=== PATIENT | female | born 1985 | race Caucasian/White ===

== ENCOUNTER → 2016-08-26 | Outpatient (CLI) | payer BC ==
[~2016-08-26] MED LIST: FERR325T51 PO; PRENTAB26 PO
== END | disposition home or self-care (01) ==
LOC: C.PATHSPEC 14:17
PROVIDERS: ATTEND Obstetrics & Gynecology
DX: N87.1 Moderate cervical dysplasia (principal); N93.0 Postcoital and contact bleeding

== ENCOUNTER → 2016-08-26 | Outpatient (CLI) | payer BC | END | disposition home or self-care (01) | LOC: C.PAPS 14:42 | PROVIDERS: ATTEND Obstetrics & Gynecology | DX: Z01.419 Encounter for gynecological examination (general) (routine) without abnormal findings (principal); N87.1 Moderate cervical dysplasia; N93.0 Postcoital and contact bleeding ==

== ENCOUNTER → 2017-01-28 | Outpatient (CLI) | payer BC ==
[2017-01-31 02:24] LABS: CHLAMYDIA TRACH RNA*** NOT DETECTED (NOT DETECTED); GC (NEIS GONORRHOEAE)RNA** NOT DETECTED (NOT DETECTED)
== END | disposition home or self-care (01) ==
LOC: C.LABSPEC 17:39
PROVIDERS: ATTEND Obstetrics & Gynecology
DX: N89.8 Other specified noninflammatory disorders of vagina (principal)

== ENCOUNTER → 2017-12-15 | Outpatient (CLI) | payer BC | END | disposition home or self-care (01) | LOC: C.PAPS 18:10 | PROVIDERS: ATTEND Obstetrics & Gynecology | DX: Z01.419 Encounter for gynecological examination (general) (routine) without abnormal findings (principal); Z87.410 Personal history of cervical dysplasia ==

== ENCOUNTER 2018-08-04 19:56 | Inpatient (IN) ==
[2018-08-04] MEDS ORDERED: ONDANSETRON INJ 2 MG/ML 2 ML VIAL IV STA (20:25)
[2018-08-04] MEDS ORDERED: ACETAMINOPHEN 1,000 MG/100 ML VIAL IV STA (20:25)
[2018-08-04] MEDS ORDERED: KETOROLAC TROMETHAMINE 15 MG/ML VIAL IV STA (20:25)
[2018-08-04] MEDS ORDERED: SODIUM CHLORIDE 0.9% 500 ML IV SCH (20:30)
[2018-08-04 20:34] LABS: Basophils # (auto) 0.05 K/uL (0-0.2); Basophils % (auto) 0.3 %; Eosinophils # (auto) 0.11 K/uL (0-0.5); Eosinophils % (auto) 0.7 %; Hematocrit (blood only) 38.3 % (37-47); Hemoglobin 13.2 g/dL (12.0-16.0); Immature Granulocytes # (auto) 0.04 K/uL (0.00-0.02); Immature Granulocytes % (auto) 0.2 %; Lymphocytes % (auto) 27.2 %; Mean Corpuscular Hgb Conc 34.5 g/dL (32-36); Mean Corpuscular Volume 90.1 fL (80-100); Mean Platelet Volume 10.4 fL (7.4-10.4); Monocytes # (auto) 0.74 K/uL (0.11-0.59); Monocytes % (auto) 4.4 %; Neutrophils # (auto) 11.35 K/uL (1.4-6.5); Neutrophils % (auto) 67.2 %; Platelet Count 312 K/uL (130-400); RDW Coefficient of Variation 12.8 % (11.5-14.5); RDW Standard Deviation 42.1 fL (36.4-46.3); Red Blood Count 4.25 M/uL (4.2-5.4); White Blood Count 16.89 K/uL (4.8-10.8)
[2018-08-04 20:50] LABS: Albumin Level 4.3 gm/dl (3.4-5.0); BUN Creatinine Ratio 15.5 (10-20); Calcium 8.9 mg/dl (8.5-10.1); Est GFR (African American) 92.5; Est GFR (Non-African American) 79.8; Potassium 3.4 mmol/L (3.5-5.1)
[2018-08-04 20:53] LABS: Albumin Globulin Ratio 1.3 (0.9-2); Bilirubin,Total 0.4 mg/dl (0.2-1); Globulin 3.4 gm/dl (2.5-4.0); Total Protein 7.7 gm/dl (6.4-8.2)
[2018-08-04 21:00] LABS: Pregnancy Test, Serum Negative (Negative)
[2018-08-04] MEDS ORDERED: IOVERSOL 100ml IV PRN (21:08)
[2018-08-04 21:09] LABS: Appearance Urine Clear (Clear); Bilirubin Urine Negative (Negative); Blood Urine Negative (Negative); Color Urine Yellow; Glucose Urine UA Negative (Negative); Ketones Urine Trace (Negative); Leukocyte Esterase Urine Negative (Negative); Nitrite Urine Negative (Negative); Protein Urine Negative (Negative); Specific Gravity Urine 1.039 (1.000-1.030); Urobilinogen Urine Negative (Negative)
[2018-08-04] MEDS ORDERED: HYDROmorphone INJ 0.5 MG/0.5 ML SYR IV STA (21:21)
[2018-08-04] MEDS ORDERED: SODIUM CHLORIDE 0.9% 1000ML 500 ML IV ONE (21:21)
--- NOTE | 2018-08-04 21:30 | CT Scan Report ---
ABDOMEN AND PELVIS CT WITH IV CONTRAST CT DOSE: 267.00 mGy.cm HISTORY: Lower abdominal pain. TECHNIQUE: Multiaxial CT images of the abdomen and pelvis were performed following the use of intrave nous contrast. A dose lowering technique was utilized adhering to the principles of ALARA. COMPARISON STUDY: None. FINDINGS: The lung bases are clear. No fractures within the visualized osseous structures. There are 2 subcentimeter hypodense lesions within the liver measuring 5 mm. There is also a 5 mm hypodense les ion within the left kidney. These are technically too small to characterize but statistically represe nt cysts. The spleen, right kidney, gallbladder, pancreas, and adrenal glands are unremarkable. No re troperitoneal lymphadenopathy. Normal bladder. The uterus is within normal limits. Moderate amount of hemoperitoneum with a sentinel clot at the pelvic cul-de-sac. There is a 2.7 cm cystic lesion within the right adnexa. No bowel wall thickening or obstruction. The appendix not well visualized due to t he hemoperitoneum. A short segment of the appendix is likely identified on image 253 and appears with in normal limits. IMPRESSION: 1. Moderate hemoperitoneum. The etiology is not identified with certainty. However, there is a sentin el clot at the pelvic cul-de-sac and a 2.7 cm cystic lesion within the right adnexa. Therefore, this may represent a ruptured hemorrhagic ovarian cyst or ruptured ectopic as the primary reason . Correlation with beta-hCG is recommended. In addition, surgical consultation also recommended for f urther evaluation. 2. These findings were discussed with Dr. Shaw at 9:20 PM on 08/04/2018. Electronically signed by: Reed Tao M.D. 08/04/2018 9:28 PM
--- NOTE | 2018-08-04 21:46 | Emergency Department Note ---
Entered by Gabino Colmenares acting as a scribe for Dequan Shaw MD History of Present Illness General Chief complaint: Abdominal Pain Stated complaint: ABDONINAL PAIN Time Seen by Provider: 08/04/18 20:19 Source: patient History of Present Illness Onset (ago): hour(s) 8 Location: abdomen (lower) Radiation: back (lower) Pain Consistency: + constant Maximum Pain Intensity: 10 Quality: + other (cramping) Relieved By: not by medication ([facility]) Exacerbated By: + other (sitting down) Associated symptoms: + other (nausea, denies vaginal bleeding); no fever/chills The patient is a 33 year old female who presents to the Emergency Room with complaints of constant lower abdominal cramping beginning about 8 hours ago. She states that her pain radiates to her lower back. The patient reports that the pain intermittently worsens to 10/10 and is exacerbated with sitting down. She notes that her pain seems less severe when bending over while walking as opposed to standing straight. She states that she had watery diarrhea prior to the onset of her pain. She also reports nausea without vomiting. She states that she is due for her period but denies any vaginal bleeding. She reports some burning wi th urination today, but not prior to the onset of her pain. She notes that there was no improvement of her pain with [facility]. She states that she has had menstrual cramps in the past, but not to this extent. She notes a history of ovarian cyst. She denies fevers, trauma, falls, history of abdominal surgery, or other medical problems. Home Medications Home Medications Medication Instructions Recorded Confirmed Type Multivit/Min/Iron/Fol Ac/Pren 1 tab PO DAILY #0 tab 02/15/15 History ( Vitamin) FERROUS SULFATE (IRON SUPPLEMENT) 1 tab PO DAILY 30 Days #30 tab 06/04/15 History Allergies Allergy/AdvReac Type Severity Reaction Status Date / Time cefaclor Allergy Unknown rash/hives Verified 06/04/15 17:49 morphine AdvReac Hypotension Verified 08/04/18 20:05 Past Med/Surg History Medical History Ovarian cyst Family History Other Ovarian cyst Social History Preferred Language: Japanese current occupation: officer Feels Safe at Home: Yes Review of Systems See HPI for pertinent positives & negatives. and A total of 10 systems reviewed and were otherwise negative Physical Exam Vital Signs Vital Signs - 24 hr 08/04/18 20:01 08/04/18 20:37 08/04/18 21:57 Temperature 36.8 C Temperature Source Oral Sepsis Recent Fever Within 48 Hours No Sepsis New/Unexplained Change in Mental Status No Sepsis Action Taken by Nursing No Action Required Pulse Rate 105 H 100 H Pulse Rate [Apical] 108 H Pulse Rhythm Regular Pulse Strength Normal Respiratory Rate 18 20 Respiratory Effort / Characteristics Non-Labored Spontaneous Respiratory Depth Normal Respiratory Pattern Regular Blood Pressure 115/82 Blood Pressure [Right Arm] 128/63 Blood Pressure Mean 93 Blood Pressure Mean [Right Arm] 84 Blood Pressure Position Sitting Pulse Oximetry 99 99 100 Oxygen Delivery Method Room Air Room Air Room Air GENERAL: Patient is in no acute distress. HEENT: No acute trauma, normocephalic atraumatic, mucous membranes moist, no nasal congestion, no scleral icterus. NECK: No stridor, no adenopathy, no meningismus, trachea is midline. LUNGS: Clear to auscultation bilaterally, no wheeze, no rhonchi, breath sounds equal. HEART: Without murmurs gallops or rubs, regular rate and rhythm. ABDOMEN: Soft, moderately tender in the lower abdomen/pelvis bilaterally, bowel sounds positive, no hernias, no peritonitis. EXTREMITIES: No cyanosis or edema, full range of motion of all the joints without pain or difficulty, no signs for acute trauma. NEUROLOGIC: Oriented x 3, no acute motor or sensory deficits, no focal weakness. SKIN: No rash, no jaundice, no diaphoresis. Course 2020: The patient was evaluated in room C4, and a complete history and physical examination were performed. 2121: I updated the patient and the at bedside on results. She states that she is still in pain. 2128: I consulted Dr. Kirit Rojas OB-SURVEILLANCE MONITOR. He recommends an ultrasound and states that he will evaluate the patient. 2131: I updated the patient on the current plan. Consultations Consultation #1: I consulted Dr. Kirit Rojas OB-SURVEILLANCE MONITOR. He recommends an ultrasound and states that he will evaluate the patient. Time: 21:29 Administered Medications Ioversol (Optiray 320 100ml) 94 ml IV ONCE PRN PRN Reason: Interaction Checking Stop: 08/08/18 21:07 Last Admin: 08/04/18 21:10 Dose: 94 ml Documented by: [id number] Discontinued Medications Hydromorphone HCl (Dilaudid) 0.5 mg IV NOW STA Stop: 08/04/18 21:22 Last Admin: 08/04/18 22:09 Dose: 0.5 mg Documented by: [id number] Acetaminophen (Ofirmev) 1,000 mg in 100 mls @ 400 mls/hr IV NOW STA Stop: 08/04/18 20:39 Last Infusion: 08/04/18 20:54 Dose: 0 mls/hr Documented by: [id number] Admin: 08/04/18 20:36 Dose: 400 mls/hr Documented by: [id number] Sodium Chloride (Nss) 500 mls @ 999 mls/hr IV .Q31M BRIGID Stop: 08/04/18 21:00 Last Infusion: 08/04/18 21:00 Dose: 0 mls/hr Documented by: [id number] Admin: 08/04/18 20:36 Dose: 999 mls/hr Documented by: [id number] Sodium Chloride (Nss 1000ml) 500 mls @ 999 mls/hr IV .Q31M ONE Stop: 08/04/18 21:51 Last Infusion: 08/04/18 21:55 Dose: 0 mls/hr Documented by: [id number] Admin: 08/04/18 21:24 Dose: 999 mls/hr Documented by: [id number] Ketorolac Tromethamine (Toradol) 15 mg IV NOW STA Stop: 08/04/18 20:26 Last Admin: 08/04/18 20:36 Dose: 15 mg Documented by: [id number] Ondansetron HCl (Zofran) 4 mg IV NOW STA Stop: 08/04/18 20:26 Last Admin: 08/04/18 20:36 Dose: 4 mg Documented by: [id number] Medical Decision Making Differential Diagnosis Differential diagnosis: ovarian cyst or ovarian cyst rupture, UTI, appendicitis, diverticulitis, menstrual cramping, colitis, bowel rupture, hernia, musculoskeletal pain Medical Records Attestation: I reviewed the patient's medical records. Home Medications Current Medication List: was personally reviewed by me Laboratory Data Attestation: I reviewed the patient's lab results. Result diagrams: 08/04/18 20:15 08/04/18 20:15 Lab Results 08/04/18 08/04/18 08/04/18 Range/Units 20:15 20:15 20:15 WBC 16.89 H (4.8-10.8) K/uL RBC 4.25 (4.2-5.4) M/uL Hgb 13.2 (12.0-16.0) g/dL Hct 38.3 (37-47) % MCV 90.1 (80-100) fL MCH 31.1 (25-34) pg MCHC 34.5 (32-36) g/dL RDW Std Deviation 42.1 (36.4-46.3) fL RDW Coeff of Marcus 12.8 (11.5-14.5) % Plt Count 312 (130-400) K/uL MPV 10.4 (7.4-10.4) fL Immature Gran % (Auto) 0.2 % Neut % (Auto) 67.2 % Lymph % (Auto) 27.2 % Gove % (Auto) 4.4 % Eos % (Auto) 0.7 % Baso % (Auto) 0.3 % Immature Gran # (Auto) 0.04 H (0.00-0.02) K/uL Neut # (Auto) 11.35 H (1.4-6.5) K/uL Lymph # (Auto) 4.60 H (1.2-3.4) K/uL Gove # (Auto) 0.74 H (0.11-0.59) K/uL Eos # (Auto) 0.11 (0-0.5) K/uL Baso # (Auto) 0.05 (0-0.2) K/uL Sodium 140 (136-145) mmol/L Potassium 3.4 L (3.5-5.1) mmol/L Chloride 108 H (98-107) mmol/L Carbon Dioxide 24 (21-32) mmol/L Anion Gap 8.0 (3-11) BUN 15 (7-18) mg/dl Creatinine 0.95 (0.6-1.2) mg/dl Est Cr Clr Drug Dosing 71.0 ml/min Est GFR ( Amer) 92.5 Est GFR (Non-Af Amer) 79.8 BUN/Creatinine Ratio 15.5 (10-20) Glucose 101 H (70-99) mg/dl Calcium 8.9 (8.5-10.1) mg/dl Total Bilirubin 0.4 (0.2-1) mg/dl AST 10 L (15-37) U/L ALT 16 (12-78) U/L Alkaline Phosphatase 55 (45-117) U/L Total Protein 7.7 (6.4-8.2) gm/dl Albumin 4.3 (3.4-5.0) gm/dl Globulin 3.4 (2.5-4.0) gm/dl Albumin/Globulin Ratio 1.3 (0.9-2) Lipase 130 (73-393) U/L HCG, Qual Negative (Negative) Urine Color Urine Appearance (Clear) Urine pH (4.5-7.5) Ur Specific Knox (1.000-1.030) Urine Protein (Negative) Urine Glucose (UA) (Negative) Urine Ketones (Negative) Urine Blood (Negative) Urine Nitrite (Negative) Urine Bilirubin (Negative) Urine Urobilinogen (Negative) Ur Leukocyte Esterase (Negative) 08/04/18 Range/Units 20:50 WBC (4.8-10.8) K/uL RBC (4.2-5.4) M/uL Hgb (12.0-16.0) g/dL Hct (37-47) % MCV (80-100) fL MCH (25-34) pg MCHC (32-36) g/dL RDW Std Deviation (36.4-46.3) fL RDW Coeff of Marcus (11.5-14.5) % Plt Count (130-400) K/uL MPV (7.4-10.4) fL Immature Gran % (Auto) % Neut % (Auto) % Lymph % (Auto) % Gove % (Auto) % Eos % (Auto) % Baso % (Auto) % Immature Gran # (Auto) (0.00-0.02) K/uL Neut # (Auto) (1.4-6.5) K/uL Lymph # (Auto) (1.2-3.4) K/uL Gove # (Auto) (0.11-0.59) K/uL Eos # (Auto) (0-0.5) K/uL Baso # (Auto) (0-0.2) K/uL Sodium (136-145) mmol/L Potassium (3.5-5.1) mmol/L Chloride (98-107) mmol/L Carbon Dioxide (21-32) mmol/L Anion Gap (3-11) BUN (7-18) mg/dl Creatinine (0.6-1.2) mg/dl Est Cr Clr Drug Dosing ml/min Est GFR ( Amer) Est GFR (Non-Af Amer) BUN/Creatinine Ratio (10-20) Glucose (70-99) mg/dl Calcium (8.5-10.1) mg/dl Total Bilirubin (0.2-1) mg/dl AST (15-37) U/L ALT (12-78) U/L Alkaline Phosphatase (45-117) U/L Total Protein (6.4-8.2) gm/dl Albumin (3.4-5.0) gm/dl Globulin (2.5-4.0) gm/dl Albumin/Globulin Ratio (0.9-2) Lipase (73-393) U/L HCG, Qual (Negative) Urine Color Yellow Urine Appearance Clear (Clear) Urine pH 5.0 (4.5-7.5) Ur Specific Knox 1.039 H (1.000-1.030) Urine Protein Negative (Negative) Urine Glucose (UA) Negative (Negative) Urine Ketones Trace H (Negative) Urine Blood Negative (Negative) Urine Nitrite Negative (Negative) Urine Bilirubin Negative (Negative) Urine Urobilinogen Negative (Negative) Ur Leukocyte Esterase Negative (Negative) Imaging Data Radiologist's Impression: Radiology results as stated below per my review and the radiologist's interpretation: *ULTRASOUND PENDING* ABDOMEN AND PELVIS CT WITH IV CONTRAST CT DOSE: 267.00 mGy.cm HISTORY: Lower abdominal pain. TECHNIQUE: Multiaxial CT images of the abdomen and pelvis were performed following the use of intravenous contrast. A dose lowering technique was utilized adhering to the principles of ALARA. COMPARISON STUDY: None. FINDINGS: The lung bases are clear. No fractures within the visualized osseous structures. There are 2 subcentimeter hypodense lesions within the liver measuring 5 mm. There is also a 5 mm hypodense lesion within the left kidney. These are technically too small to characterize but statistically represent cysts. The spleen, right kidney, gallbladder, pancreas, and adrenal glands are unremarkable. No retroperitoneal lymphadenopathy. Normal bladder. The uterus is within normal limits. Moderate amount of hemoperitoneum with a sentinel clot at the pelvic cul-de-sac. There is a 2.7 cm cystic lesion within the right adnexa. No bowel wall thickening or obstruction. The appendix not well visualized due to the hemoperitoneum. A short segment of the appendix is likely identified on image 253 and appears within normal limits. IMPRESSION: 1. Moderate hemoperitoneum. The etiology is not identified with certainty. However, there is a sentinel clot at the pelvic cul-de-sac and a 2.7 cm cystic lesion within the right adnexa. Therefore, this may represent a ruptured hemorrhagic ovarian cyst or ruptured ectopic as the primary reason. Correlation with beta-hCG is recommended. In addition, surgical consultation also recommended for further evaluation. 2. These findings were discussed with Dr. Shaw at 9:20 PM on 08/04/2018. Electronically signed by: Reed Tao M.D. 08/04/2018 9:28 PM Blood Pressure Blood Pressure Findings: Normal blood pressure Blood Pressure Disposition: did not require urgent referral MDM Narrative There is a moderate leukocytosis at 16.8. This is consistent with infection or possibly her pain. No anemia. No significant electrolyte abnormality or kidney failure. No hepatitis or pancreatitis. testing is negative. Urinalysis does not show evidence for infection. Abdominal and pelvis CT shows a moderate amount of hemoperitoneum and a potential ruptured ovarian cyst. The patient received IV saline, she was given IV Tylenol and IV Toradol. She received IV Zofran. Patient was ordered for a dose of IV Dilaudid but, she wanted to hold on this medication as she does not do well with narcotics. I did speak with [employer]PORATE [employer] PROGRAM COORDINATOR. The patient will be seen here in the ED by OB. She may require hospitalization and/or surgical intervention. Patient and her family are up-to-date with the findings. I did order for an ultrasound of the pelvis as requested by OB, this result is pending. Please see the CORPORATE FITNESS PROGRAM COORDINATOR notes for the final disposition and plan. Impression & Plan Hemoperitoneum, Pelvic pain, Ovarian cyst Discharge Plan Visit Data Chief Complaint: Abdominal Pain Stated Complaint: ABDONINAL PAIN ED Provider: Dequan Shaw Discharge Problem: Hemoperitoneum, Pelvic pain, Ovarian cyst Patient Disposition: Still a Patient Condition: Good Forms Stand Alone Forms: Call Back Authorization, My [facility] Prescriptions Prescriptions: No Action Multivit/Min/Iron/Fol Ac/Pren ( Vitamin) tablet 1 tab PO DAILY Qty: 0 RF: 0 FERROUS SULFATE (IRON SUPPLEMENT) 325 MG tablet 1 tab PO DAILY 30 Days Qty: 30 RF: 10 Referrals Referrals: PCP,NO [Primary Care Provider] - Discharge Problem: Ovarian cyst Qualifiers: Laterality: right Qualified Code(s): N83.201 - Unspecified ovarian cyst, right side The scribe's documentation has been prepared under my direction and personally reviewed by me in its entirety. I confirm that the note above accurately reflects all work, treatment, procedures, and medical decision making performed by me.
--- NOTE | 2018-08-04 22:59 | Ultrasound Report ---
PELVIC ULTRASOUND, TRANSABDOMINAL AND TRANSVAGINAL HISTORY: Abnormal CT. Right sided ovarian cyst COMPARISON: Abdomen and pelvis CT 08/04/2018. FINDINGS: Uterus: 9.5 x 5.0 x 5.5 cm. No uterine masses. Endometrial stripe: 1.4 cm in thickness. Right ovary: Not well visualized due to the surrounding complex fluid. This measures approximately 5. 4 x 3.2 x 4.1 cm. This contains a 2.7 x 2.4 x 2.1 cm thick-walled complex cyst. This favors a hemorrh agic cyst. Normal color flow within the right ovary. Left ovary: Normal in size and demonstrates normal color flow. Miscellaneous:Moderate complex fluid. IMPRESSION: 1. Moderate complex fluid consistent with the patient's known hemoperitoneum. 2. The right ovary is not well visualized due to the surrounding complex fluid. There is a 2.7 cm com plex cyst within the right ovary. This favors a hemorrhagic cyst. 3. Follow-up beta-hCG is recommended given the hemoperitoneum to exclude the possibility of a rupture d ectopic . Electronically signed by: Reed Tao M.D. 08/04/2018 10:57 PM
[2018-08-04] MEDS ORDERED: ACETAMINOPHEN 325 MG TAB PO PRN (23:29)
[2018-08-04] MEDS ORDERED: OXYCODONE HCL IR 5 MG TAB (IMMEDIATE RELEASE) PO PRN (23:29)
[2018-08-04] MEDS ORDERED: HYDROmorphone INJ 1 MG/ML SYRINGE IV PRN (23:29)
[2018-08-04] MEDS ORDERED: IBUPROFEN 600 MG TAB PO SCH (23:30)
[2018-08-04] MEDS ORDERED: LACTATED RINGER'S 1,000 ML IV SCH (23:30)
[2018-08-05 00:20] LABS: Hematocrit (blood only) 29.8 % (37-47); Hemoglobin 10.2 g/dL (12.0-16.0)
[2018-08-05] MEDS ORDERED: HYDROmorphone INJ 1 MG/ML SYRINGE IV PRN (00:53)
[2018-08-05] MEDS ORDERED: ACETAMINOPHEN 325 MG TAB PO PRN (00:53)
[2018-08-05] MEDS ORDERED: OXYCODONE HCL IR 5 MG TAB (IMMEDIATE RELEASE) PO PRN (00:53)
[2018-08-05] MEDS ORDERED: PROMETHAZINE HCL 25 MG in SODIUM CHLORIDE 0.9% 50 ML IV PRN (00:59)
[2018-08-05] MEDS: SIMETHICONE 80 MG CHEW PO PRN ×2 (01:27→08:30)
[2018-08-05 06:03] LABS: Basophils # (auto) 0.03 K/uL (0-0.2); Basophils % (auto) 0.2 %; Eosinophils # (auto) 0.01 K/uL (0-0.5); Eosinophils % (auto) 0.1 %; Hematocrit (blood only) 33.1 % (37-47); Hemoglobin 11.1 g/dL (12.0-16.0); Immature Granulocytes # (auto) 0.04 K/uL (0.00-0.02); Immature Granulocytes % (auto) 0.2 %; Lymphocytes # (auto) 1.98 K/uL (1.2-3.4); Lymphocytes % (auto) 12.2 %; Mean Corpuscular Volume 90.9 fL (80-100); Mean Platelet Volume 10.6 fL (7.4-10.4); Monocytes # (auto) 0.52 K/uL (0.11-0.59); Monocytes % (auto) 3.2 %; Neutrophils # (auto) 13.62 K/uL (1.4-6.5); Neutrophils % (auto) 84.1 %; Platelet Count 254 K/uL (130-400); RDW Coefficient of Variation 12.7 % (11.5-14.5); RDW Standard Deviation 42.6 fL (36.4-46.3); Red Blood Count 3.64 M/uL (4.2-5.4)
[2018-08-05 06:13] LABS: Mean Corpuscular Hgb Conc 33.5 g/dL (32-36)
--- NOTE | 2018-08-05 07:07 | Gynecologic Progress Note ---
Date of Service August 05, 2018 Assessment & Plan (1) Hemoperitoneum: 33yo with ruptured hemorrhagic cyst. Admitted for serial H/H to eval for active bleeding. H/H stable and slightly increased. TVUS without sign of active bleeding. - Stable for D/c today - Will scheduled out patient follow-up in 2-3 weeks (2) Ovarian cyst: Subjective Patient reports pain is significantly improving. No N/V. Ambulating. Will restart regular diet has H/H has been stable Physical Exam Vital Signs (Past 24 Hours): Last Vital Signs Temp 37.1 C 08/05/18 04:20 Pulse 74 08/05/18 04:20 Resp 18 08/05/18 04:20 BP 95/56 L 08/05/18 04:20 Pulse Ox 100 08/05/18 00:30 Gastrointestinal (Abdomen): Percussion/Palpation: abdomen soft; abdomen nontender, no guarding and abdomen not rigid (1) Ovarian cyst Laterality: right Qualified Code(s): N83.201 - Unspecified ovarian cyst, right side
--- NOTE | 2018-08-05 09:59 | History and Physical Report ---
DATE OF CONSULTATION: 08/04/2018 REASON FOR VISIT: Acute-onset pelvic pain, hemoperitoneum in the setting of ovarian cyst, concerned for active bleeding. HISTORY OF PRESENT ILLNESS: Ms. Greco is a 33-year-old G2, P2-0-0-2, who presented due to acute-onset pelvic pain. The patient reports that her pain started around noon on day of consult and was initially a cramping, sharp, stabbing, achy pain that was progressing in intensity over several hours. She reports that she stopped to use the restroom and then had a very acute onset of pain which actually caused her to pass out. She reports that she was awoken by her colleagues and was brought to the Emergency Department by her colleagues. Upon evaluation in the ED, an initial CBC did show a hematocrit of 38.3, hemoglobin of 13.2. The patient was sent for a CT of abdomen and pelvis that was remarkable for moderate hemoperitoneum with a 2.7 cystic lesion in the right adnexa, thought to represent a hemorrhagic cyst versus possible ruptured ectopic . HCG level was noted to be negative. There was concern on CT scan that the cyst could still be actively bleeding which resulted in consulting [employer]. I requested a transvaginal ultrasound upon being contacted. The transvaginal ultrasound did concur with the CT scan finding of moderate hemoperitoneum likely originating from a ruptured hemorrhagic right ovarian cyst. No signs of active bleeding were noted on transvaginal ultrasound. At the time of evaluating the patient, the patient reported that her pain was improving, although she was reporting some mild nausea without vomiting. The findings on ultrasound and CT were discussed with Katlyn and her family in the Emergency Department as well as concern for active bleeding and hemorrhagic cyst. PAST MEDICAL HISTORY: Unremarkable. PAST SURGICAL HISTORY: Unremarkable. SOCIAL HISTORY: The patient is a lawyer real estate. She denies tobacco or illicit drug use. FAMILY HISTORY: Noncontributory. CURRENT MEDICATIONS: 1. Multivitamin. 2. Iron. ALLERGIES: CEPHALOSPORIN, ANTIBIOTICS, SENSITIVITY TO MORPHINE. PHYSICAL EXAMINATION: VITAL SIGNS: Temperature 36.8, heart rate 105, blood pressure 115/82, respiratory rate 18. GENERAL: At time of evaluation, the patient was appearing to be comfortable in no acute distress, alert and oriented x3. CARDIOVASCULAR: Exam showed regular rate and rhythm. LUNGS: Clear to auscultation bilaterally. ABDOMEN: There was noted to be diffuse tenderness without rebound or guarding. Tenderness was most significant in the right lower quadrant. No rebound or guarding throughout and abdomen was noted to be soft. GENITOURINARY: Noted for tenderness in the right adnexa, was otherwise unremarkable. LOWER EXTREMITIES: Unremarkable bilaterally. ASSESSMENT AND PLAN: Ms. Greco is a 33-year-old G2, P2-0-0-2 with a ruptured hemorrhagic cyst. There was question as to whether the cyst was continuing to bleed intraperitoneal based on CT scan, although this did not appear to be the case on ultrasound. The findings and possibility of continued bleeding were discussed with Katlyn and her family today in the ED. I did recommend that we admit for serial blood counts to evaluate for continued active bleeding. I did discuss that hemorrhagic cysts typically do bleed initially, but almost always stop on their own without need for any further intervention. We did discuss pain control and the patient reports that she did receive a small dose of Dilaudid in the ED, which helped considerably with the pain. I did discuss that we would continue on with Tylenol, oxycodone, and Dilaudid for breakthrough. The patient was agreeable to this plan. If the patient does appear to be bleeding internally, we did discuss the possibility of a diagnostic/operative laparoscopy with right ovarian cystectomy, evacuation of hemoperitoneum, and ligation of bleeding vessel.
--- NOTE | 2018-08-14 09:48 | Discharge Summary ---
HOSPITAL COURSE: The patient was admitted from the ED for a ruptured hemorrhagic cyst with questionable continued bleeding. The patient was admitted for serial H and H's. At time of admission, the patient was in moderate pain and was given narcotic pain medication which did significant relief of her discomfort. The patient was started on serial H and H's every 6 hours and the initial hematocrit and hemoglobin did drop slightly, but did recover at the morning of evaluation. The patient was noted to be feeling better at that time with pain controlled with oral medications. The patient was also noted to be stable and overall feeling significantly improved and was stable for discharge. The patient was discharged in stable condition with planned clinic followup.
== END 2018-08-05 09:45 | disposition home or self-care (01) | DRG 760 ==
LOC: ED 19:56 → 4S2 23:29